=== PATIENT | male | born 1995 | race Hispanic/Latino ===

== ENCOUNTER 2021-08-22 22:32 | Emergency (ER) | payer SELFPAY ==
--- NOTE | 2021-08-23 02:39 | XRay Report ---
RIGHT HAND 3 VIEWS INDICATION / CLINICAL INFORMATION: DOG BITE TO HAND COMPARISON: None available. FINDINGS: BONES and JOINT(S): No acute fracture or subluxation. No significant arthritis. SOFT TISSUES: A small amount of soft tissue gas is seen laterally along the base of the thumb/wrist. No radiopaque foreign body or other significant abnormality. ADDITIONAL FINDINGS: None. IMPRESSION: Soft tissue gas as above likely indicates the site of the reported dog bite. No other acute findings. Signer Name: Danyel Galindo MD Signed: 08/23/2021 2:35 AM Workstation Name: [email or web address]
--- NOTE | 2021-08-23 03:21 | Emergency Department Report ---
Upper Extremity - HPI Chief Complaint: Animal Bite Stated Complaint: DOG BITE Time Seen by Provider: 08/22/21 23:56 ED Review of Systems ROS: Stated complaint: DOG BITE Other details as noted in HPI Comment: All other systems reviewed and negative ED Past Medical Hx - Past Medical History Previous Medical History?: No - Surgical History Additional Surgical History: KNEE SURGERY - Medications Home Medications: Home Medications Medication Instructions Recorded Confirmed Last Taken Type Amoxicillin/Potassium Clav 1 each PO BID #20 tablet 08/23/21 Unknown Rx [Augmentin 875-125 Tablet] Chlorhexidine Gluconate [Hibiclens] 10 ml TP BID #240 liquid 08/23/21 Unknown Rx Mupirocin [Bactroban 2%] 15 applic TP TID #15 gm 08/23/21 Unknown Rx Upper Extremity Exam - Exam General: Vital signs noted. No distress. Alert and acting appropriately. Head and Torso: No HEENT Abnormality, No Neck Tenderness, No Chest/Lungs Abnormality, No Abdominal Tenderness, No Back Tenderness Shoulder Exam: Yes Normal Range of Motion in Shoulder, No Shoulder Tenderness, No Clavicle Tenderness, No Shoulder Deformity, No AC Joint Tenderness Arm Exam: No Arm/Humerus Tenderness, No Arm Deformity Elbow: No Elbow Tenderness, No Normal Range of Motion in Elbow, No Elbow Deformity Forearm: No Forearm Tenderness, No Forearm Deformity, No Pain with Pronation, No Pain with Supination Wrist: Yes Normal ROM in Wrist, No Wrist Tenderness, No Wrist Deformity, No Snuffbox Tenderness, No Pain with Axial Thumb Compression Hand: Yes Hand Tenderness, Yes Normal ROM in Digit(s), No Hand Deformity, No Digit Tenderness, No Digit(s) Deformity, No Tendon Dysfunction CMS Exam: No Broken Skin, No Normal Distal Pulses, No Normal Capillary Refill, No Normal Distal Sensation ED Course Vital Signs 08/22/21 23:41 Temperature 98.7 F Pulse Rate 64 Respiratory 18 Rate Blood Pressure 122/70 [Right] O2 Sat by Pulse 98 Oximetry Critical care attestation.: If time is entered above; I have spent that time in minutes in the direct care of this critically ill patient, excluding procedure time. ED Disposition Clinical Impression: Dog bite of hand Disposition: 01 HOME / SELF CARE / HOMELESS Is pt being admited?: No Does the pt Need Aspirin: No Condition: Stable Instructions: Wound Care, Adult, Animal Bite, Adult Prescriptions: Amoxicillin/Potassium Clav [Augmentin 875-125 Tablet] 1 each PO BID #20 tablet Mupirocin [Bactroban 2%] 15 applic TP TID #15 gm Chlorhexidine Gluconate [Hibiclens] 10 ml TP BID #240 liquid Referrals: [facility] [Provider Group] - 3-5 Days [facility],MD [Primary Care Provider] - 3-5 Days
[2021-08-23 03:38] VITALS: BP 132/79
== END 2021-08-23 03:47 | disposition home or self-care (01) ==
LOC: ED 22:32
DX: S61.431A Puncture wound without foreign body of right hand, initial encounter (principal); Z98.890 Other specified postprocedural states; Z79.899 Other long term (current) drug therapy; W54.0XXA Bitten by dog, initial encounter; Y93.89 Activity, other specified; Y92.89 Other specified places as the place of occurrence of the external cause; Y99.8 Other external cause status
CPT/HCPCS: 99283